=== PATIENT | male | born 1980 | race Caucasian/White ===

== ENCOUNTER 2018-02-23 05:13 | Day surgery (SDC) | payer OTHER ==
[~2018-02-23] VITALS: Ht 205.7 cm; Wt 107.0 kg
--- NOTE | ~2018-02-23 | OP ---
PATIENT NAME: NAN GARCIA MEDICAL RECORD: [id number] :84 LOCATION:[facility] ADMISSION DATE: SURGEON: DENISE BOURNE MD DATE OF OPERATION: 02/23/2018 SURGEON: Denise Bourne MD ANESTHESIA: General anesthesia by Ankush Posadas CRNA DIAGNOSIS: Male sterilization. PROCEDURE: Bilateral vasectomy. SPECIMENS: Left and right vas deferens. ESTIMATED BLOOD LOSS: None. CLINICAL HISTORY: This is a 37-year-old male, who has 2 children. He also has Marfan's syndrome. He does not wish to have any more children. His is in agreement with this. He is otherwise in excellent health. He is not allergic to any medications. 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 DESCRIPTION OF PROCEDURE: The patient was given induction of general anesthesia in supine position. He was then shaved and prepped. The vas deferens was identified on the right side. Towel clips were placed through the scrotal skin to lock the vas deferens in place and prevent its migration. The skin overlying the vas deferens was infiltrated with 0.25% Marcaine without epinephrine. An incision was made about 1 cm in length using a 15 blade. The needle-point Bovie was then used to go through the dartos fascia. We then used a small right angle clamp to go around the vas deferens and lifted up. The tunics were stripped by spreading the jaws of right angle clamp. The vas was clamped on either end with mosquito clamps. The intervening segment was cut using the Metzenbaum scissors. The segment was then sent to pathology as a specimen. The 2 specimens one from each side were sent in separate containers. Once the vas had been cut and the intervening segment removed. The ends of the cut vas were cauterized using the needle tip Bovie electrode. The ends were also ligated using a 2-0 Prolene. Once this was done, any bleeding points were cauterized and then the hemiscrotal incision was closed using simple interrupted 4-0 Vicryl. The same procedure was repeated on the left side. At the end of the procedure, fluffs were placed on the scrotum and mesh panties were given to the patient. I will see the patient in followup in 1-2 weeks' time to check on wound healing. TRANSINT:[id number] Voice Confirmation ID: [id number] DOCUMENT ID: [id number] DENISE BOURNE MD at 1154 CC: [id number] DICTATION DATE: 02/23/18 0855 WEAVER HAND: 02/23/18 1042 REG [facility] [address] [id number]
[~2018-02-23 05:13] MED LIST: TOPROL XL25 MG PO
[2018-02-23 06:25] VITALS: BP 125/66; Ht 205.7 cm; Wt 107.0 kg
[2018-02-23 06:29] LABS: BASOPHILS 0.8 % (0-2); EOSINOPHILS 4.7 % (0-7); HEMATOCRIT 40.8 % (42.0-54.0); HEMOGLOBIN 13.7 g/dL (13.5-17.5); MCH 30.9 pg (26.0-34.0); MCHC 33.6 g/dL (31.0-37.0); MCV 91.9 fL (80.0-100.0); MONOCYTES 9.4 % (2-11); NEUTROPHILS 59.1 % (40-80); PLATELET COUNT 153 10x3/uL (130-400); RBC 4.44 10x6/uL (4.20-6.10); RDW 12.4 % (11.5-14.5); WBC 4.9 10x3/uL (4.8-10.8)
== END 2018-02-23 10:45 | disposition home or self-care (01) ==
LOC: D.OPS 05:13 → D.PAN 07:30 → D.OPS 10:45
PROVIDERS: Anesthesiology
DX: Z30.2 Encounter for sterilization (principal); Q87.40 Marfan syndrome, unspecified; Z01.812 Encounter for preprocedural laboratory examination